=== PATIENT | male | born 2000 | race Caucasian/White ===

== ENCOUNTER 2022-02-17 19:40 | Emergency (ER) | payer OTHER, SELFPAY ==
[2022-02-17] VITALS (10 sets, daily range): BP systolic 128–158; BP diastolic 75–93; PULSE 74–97; RESP 12–20; TEMP 36.2; O2SAT 98–100
--- NOTE | ~2022-02-17 | XR_ITS ---
XR chest 2V DATE: 02/17/2022 20:02 INDICATION: Chest pain, dizziness. TECHNIQUE: PA and lateral views COMPARISON: May 29, 2010 PA and lateral chest FINDINGS: Normal heart size. No hilar or mediastinal enlargement. No pulmonary infiltrate or consolid ation, pleural effusion or pulmonary vascular congestion or pneumothorax. Minimal dextroscoliosis of the thoracic spine. IMPRESSION: No active cardiopulmonary disease Reviewed, dictated and finalized at location A.
--- NOTE | 2022-02-17 19:45 | ECG_ITS ---
Measurements Intervals [place] Rate: 73 P: 70 MO: 148 QRS: 80 QRSD: 94 T: 31 QT: 361 QTc: 398 Interpretive Statements SINUS RHYTHM WITH SINUS ARRHYTHMIA POSSIBLE LEFT ATRIAL ENLARGEMENT INCOMPLETE RIGHT BUNDLE BRANCH BLOCK NONSPECIFIC T-WAVE ABNORMALITY- INFERIOR LEADS BASELINE ARTIFACT- I, II, AVR, AVL, V4 BORDERLINE ECG NO PREVIOUS ECG AVAILABLE FOR COMPARISON Electronically Signed On 02-18-2022 6:56:54 CDT by Jalil Olivas D.O.
[2022-02-17 20:03] LABS: Basophils Absolute Auto 0.1 K/mm3 (0.0-0.1); Basophils Percent Auto 0.8 % (0.2-1.2); Eosinophils Absolute Auto 0.5 K/mm3 (0-0.3); Eosinophils Percent Auto 4.4 % (0-4.4); Hematocrit 45.9 % (42.0-52.0); Hemoglobin 15.4 g/dL (14.0-18.0); Immature Granulocyte Absolute 0.06 K/mm3 (0.00-0.031); Immature Granulocyte Percent A 0.6 % (0-0.5); Lymphocytes Absolute Auto 2.77 K/mm3 (0.9-3.2); Lymphocytes Percent Auto 25.6 % (18.3-44.2); Mean Corpuscular HGB Conc 33.6 g/dl (32-36); Mean Corpuscular Hemoglobin 30.3 pg (26-34); Mean Corpuscular Volume 90.4 fl (80-100); Mean Platelet Volume 9.7 fl (7.4-10.4); Monocytes Absolute Auto 0.9 K/mm3 (0.1-0.6); Monocytes Percent Auto 8.6 % (2.6-8.5); Neutrophils Absolute Auto 6.5 K/mm3 (1.3-6.7); Platelet Count Result 237 k/mm3 (150-375); Red Blood Count 5.08 M/mm3 (4.6-6.20); Red Cell Distribution Width 11.6 % (11.5-14.5); White Blood Count 10.8 K/mm3 (4.5-10.0)
[2022-02-17 20:13] LABS: INR 1.2; Prothrombin Time 14.3 Seconds (11.1-14.7)
[2022-02-17 20:14] LABS: Partial Thromboplastin Time 29.9 SECONDS (22.3-36.8)
[2022-02-17 20:15] LABS: Alanine Aminotransferase 24 U/L (6-50); Albumin Level 5.2 g/dL (3.5-5.1); Alkaline Phosphatase 56 U/L (38-126); Anion Gap 14 mmol/L (8-16); Aspartate Amino Transferase 28 U/L (17-59); Bilirubin,Total 0.7 mg/dL (0.2-1.3); Blood Urea Nitrogen 12 mg/dL (9-20); Calcium 9.2 mg/dL (8.4-10.2); Carbon Dioxide 27 mmol/L (22-30); Chloride 98 mmol/L (98-107); Estimated CRCL calculation 104 ml/min; Estimated Glomerular Filt Rate > 60; Glucose 108 mg/dL (65-110); Lipase 88 U/L (23-300); Potassium 3.5 mmol/L (3.4-5.0); Sodium 139 mmol/L (137-145)
[2022-02-17 20:26] LABS: Troponin I < 0.012 ng/mL (0.000-0.034)
--- NOTE | 2022-02-17 20:35 | ED.CHESTPAIN ---
HPI - Chest Pain General Chief Complaint: Chest Pain Stated Complaint: chest pain Time Seen by Provider: 02/17/22 20:25 Source: patient Mode of arrival: ambulatory Limitations: no limitations History of Present Illness HPI narrative: Presents c/o chest pain that started 191 this evening. States lasted approx 10 minutes then resolved. During episode, experienced dizziness and reports had low blood pressure. Currently has headache and feels tired but otherwise denies c/o. Denies recent illness, new medications or supplements. Denies other problems or c/o at this time. Related Data Allergies Allergy/AdvReac Type Severity Reaction Status Date / Time No Known Allergies Allergy Unknown Unverified 02/17/22 20:37 Review of Systems Review of Systems: CONSTITUTIONAL: Denies fever, chills, or sweats. Feels weak. EYES: Denies visual changes, redness, or discharge. ENT: Denies rhinorrhea, congestion, sore throat, or otalgia. CARDIOVASCULAR: Chest pain x 10 minutes. Denies palpitations, or edema. RESPIRATORY: Denies cough or dyspnea. GASTROINTESTINAL: Denies abdominal pain, nausea, vomiting, or diarrhea. GENITOURINARY: Denies dysuria or hematuria. SKIN: Denies rash or itching. MUSCULOSKELETAL: Denies back pain, joint pain, or myalgia. NEUROLOGIC: Mild Headache. Denies numbness, or focal weakness. PSYCHIATRIC: Denies anxiety or depression. [facility], [facility] Past Medical History Medical History (Updated 02/17/22 @ 21:48 by Vincent Shin, LOUISE) Encounter to establish care Exposure to COVID-19 virus (~05/01/21) Frequent headaches Headache Pharyngitis (05/01/21) Family History Family History (Updated 09/25/20 @ 14:51 by Caleb Puentes [facility]) Mother Diabetes mellitus Grandparent Diabetes mellitus Grandparent Diabetes mellitus Social History Social History (Updated 09/25/20 @ 14:52 by Caleb Puentes [facility]) Smoking status: Never smoker Alcohol intake: never Substance use: never Exam Narrative: GENERAL: Well-appearing, well-nourished, and in no acute distress. HEAD: Normocephalic, atraumatic. EYES: PERRLA and EOMI. ENT: Nares clear, no rhinorrhea or epistaxis. Mucous membranes moist. NECK: Supple. CHEST: Clear to auscultation. No respiratory distress. HEART: Regular rate and rhythm. No murmur heard. Normal peripheral pulses. ABDOMEN: Soft, nontender, nondistended, normal active bowel sounds. EXTREMITIES: Normal range of motion. No edema. SKIN: Warm, dry, no rash. NEURO: No focal deficits. Alert and oriented x3. PSYCH: Normal mood and affect. Course Course Emergency Course: No recurrence of sx while in ED. States feels fine and ready to be discharged home. Vital Signs Vital signs: Vital Signs Temperature 36.2 C L 02/17/22 19:41 Pulse Rate 84 02/17/22 19:41 Respiratory Rate 16 02/17/22 19:41 Blood Pressure 148/82 H 02/17/22 19:41 Pulse Oximetry 100 02/17/22 19:41 Temperature 36.2 C L 02/17/22 19:41 Pulse Rate 74 02/17/22 20:36 Respiratory Rate 16 02/17/22 19:41 Blood Pressure 153/92 H 02/17/22 20:36 Pulse Oximetry 100 02/17/22 19:41 MDM - Chest Pain Lab Data Result diagrams: 02/17/22 19:53 02/17/22 19:53 Labs: Lab Results 02/17/22 02/17/22 02/17/22 Range/Units 19:53 19:53 19:53 WBC 10.8 H (4.5-10.0) K/mm3 RBC 5.08 (4.6-6.20) M/mm3 Hgb 15.4 (14.0-18.0) g/dL Hct 45.9 (42.0-52.0) % MCV 90.4 (80-100) fl MCH 30.3 (26-34) pg MCHC 33.6 (32-36) g/dl RDW 11.6 (11.5-14.5) % Plt Count 237 (150-375) k/mm3 MPV 9.7 (7.4-10.4) fl Immature Gran % (Auto) 0.6 H (0-0.5) % Neut % (Auto) 60.0 (45.5-73.1) % Lymph % (Auto) 25.6 (18.3-44.2) % [place] % (Auto) 8.6 H (2.6-8.5) % Eos % (Auto) 4.4 (0-4.4) % Baso % (Auto) 0.8 (0.2-1.2) % Lymph # (Auto) 2.77 (0.9-3.2) K/mm3 [place] # (Auto) 0.9 H (0.1-0.6) K/mm3 Eos # (Auto) 0.5 H (0-0.3) K/mm3 Baso # (Aut
[2022-02-17 20:39] LABS: SARS-CoV-2 RNA PCR Negative
== END 2022-02-17 22:25 | disposition home or self-care (01) ==
LOC: ANHED 21:55
PROVIDERS: Emergency Medicine; Emergency Provider Nurse Practitioner
DX: R55 Syncope and collapse (principal); Z20.822 Contact with and (suspected) exposure to COVID-19
CPT/HCPCS: 36415; 71046; 80053; 83690; 84484; 85025; 85610; 85730; 93005; 99284; U0003; U0005